=== PATIENT | male | born 1985 | race Caucasian/White ===

== ENCOUNTER 2018-06-13 20:30 | Emergency (ER) | payer OTHER ==
[2018-06-13 20:39] VITALS: BP 136/56
--- NOTE | 2018-06-13 20:57 | ED ---
Throat Pain/Nasal Congestion - HPI Summary HPI Summary: Patient is a 33-year-old who presents emergency department for worsening dental pain 3 days. Patient currently does not have a family doctor and return to us. He notes pain to right thumb over gums increase over the last several days and noticed facial swelling yesterday. Admits to chills without fever. Denies nausea or vomiting. Has no significant past medical history. Symptoms are mild. Touching affected area makes symptoms worse. Nothing makes it better. - History of Current Complaint Chief Complaint: EDDentalPain Time Seen by Provider: 06/13/18 20:56 Hx Obtained From: Patient - Allergies/Home Medications Allergies/Adverse Reactions: Allergies Allergy/AdvReac Type Severity Reaction Status Date / Time No Known Allergies Allergy Verified 06/13/18 20:36 Home Medications: Home Medications Cholecalciferol TAB* [Vitamin D TAB*] 1 tab PO DAILY 06/13/18 [History Confirmed 06/13/18] Divalproex Sodium [Depakote ER] 1,500 mg PO DAILY 06/13/18 [History Confirmed ] Propranolol TAB* [Inderal TAB*] 160 mg PO DAILY 06/13/18 [History Confirmed ] clonazePAM [Klonopin] 2 mg PO DAILY 06/13/18 [History Confirmed 06/13/18] PMH/Surg Hx/FS Hx/Imm Hx Previously Healthy: Yes Infectious Disease History: No Infectious Disease History: Denies: Traveled Outside the [place] in Last 30 Days - Family History Known Family History: Positive: Other - Noncontributory - Social History Occupation: Employed Full-time Lives: With Family Review of Systems Positive: Chills. Negative: Fever Positive: Dental Pain Gastrointestinal: Negative Negative: Vomiting, Nausea All Other Systems Reviewed And Are Negative: Yes Physical Exam Triage Information Reviewed: Yes Vital Signs On Initial Exam: Initial Vitals Temp Pulse Resp BP Pulse Ox 97.3 F 57 16 136/56 97 06/13/18 20:34 06/13/18 20:34 06/13/18 20:34 06/13/18 20:34 06/13/18 20:34 Vital Signs Reviewed: Yes Appearance: Positive: Well-Appearing - Pt. sitting on chair in NAD. Skin: Positive: Warm, Dry Head/Face: Positive: Normal Head/Face Inspection Eyes: Positive: Normal ENT: Positive: Other - Poor dentition throughout. Posterior bottom left gums there is an area of fluctuance. Mild-moderate right sided facial edema. No trismus. No pain or swelling under the tongue. No submandibular edema. Neck: Positive: Supple, Nontender, No Lymphadenopathy Neurological: Positive: Normal, CN Intact II-III Psychiatric: Positive: Affect/Mood Appropriate Procedures - Procedure Summary Procedure Summary: Hurricaine spray was used to anesthetize right steering thumb. Is able to express a small amount of purulent drainage with light pressure to posterior gum. No incision and puncture was made. Patient tolerated well. Diagnostics - Vital Signs Vital Signs Temp Pulse Resp BP Pulse Ox 06/13/18 20:34 97.3 F 57 16 136/56 97 - Laboratory Lab Statement: Any lab studies that have been ordered have been reviewed, and results considered in the medical decision making process. EENT Course/Dx - Course Course Of Treatment: Patient presenting with dental abscess. He is afebrile well-appearing. No evidence of ludwigs angina. Was able to express purulent matter from gums. Will place on clindamycin. Strongly advised patient to follow up with a dentist as soon as possible. Also to f.u with the [facility] for follow-up appointment. To apply warm compresses. Motrin as directed. To return to the ER for increased pain, swelling, fever, difficulty opening mouth. Patient understands and agrees with plan. - Differential Diagnoses Differential Diagnoses: Dental Abscess, Dental Caries, Periodontic Abscess, Periodontic Disease - Diagnoses Provider Diagnoses: Dental abscess Discharge - Sign-Out/Discharge Documenting (check all that apply): Patient Departure - Discharge Plan Condition: Good Disposition: HOME Prescriptions: Clindamycin HCl 300 mg PO Q6H #40 capsule Patient Education Materials: Dental Abscess (ED) Referrals: [facility] [Outside] No Primary Care Phys,NOPCP [Primary Care Provider] - Additional Instructions: Schedule an appointment with a dentist TIESHA Take antibiotic as directed Motrin 600-800mg every 8 hours Apply warm compresses Return to ER for increased pain, swelling, trouble opening mouth, fever, vomiting, or if concerned - Billing Disposition and Condition Condition: GOOD Disposition: Home
[2018-06-13] MEDS ORDERED: Benzocaine/Butamben/Tetracain* SPRAY TOPICAL ONE (21:23)
[2018-06-13] MEDS ORDERED: Clindamycin CAP* 150 MG PO ONE (21:56)
== END 2018-06-13 22:22 | disposition home or self-care (01) ==
LOC: ED 20:30
DX: K04.7 Periapical abscess without sinus (principal)
CPT/HCPCS: 99281; A9270-GY

== ENCOUNTER 2019-10-28 15:39 | Emergency (ER) | payer OTHER ==
[2019-10-28 15:50] VITALS: BP 133/66
[2019-10-28] MEDS ORDERED: Lidocaine 2.5%/Prilocain 2.5%* 5 GM TUBE TOPICAL ONE (17:41)
[2019-10-28] MEDS ORDERED: Lidocaine 1% MPF ** 5 ML VIAL INJ ONE (17:41)
[2019-10-28] MEDS ORDERED: oxyCODONE/Acetamin 5/325 MG* TAB PO ONE (18:14)
--- NOTE | 2019-10-28 18:20 | ED ---
Skin Complaint - HPI Summary HPI Summary: 34-year-old male presents with right groin abscess for the past 5 days. He did poke it with a safety pin a couple days ago and only got blood. He denies any fevers or chills. He states that his dad has had this before in this location but he has never had it there. He has had boils elsewhere. He denies any history of MRSA. He is not diabetic. Area has not been draining. - History of Current Complaint Chief Complaint: EDRashSkinAbscess Time Seen by Provider: 10/28/19 17:28 Stated Complaint: SCROTUM ISSUE PER PT Pain Intensity: 10 - Allergy/Home Medications Allergies/Adverse Reactions: Allergies Allergy/AdvReac Type Severity Reaction Status Date / Time No Known Allergies Allergy Verified 10/28/19 15:50 Home Medications: Home Medications Cholecalciferol TAB* [Vitamin D TAB*] 1,000 unit PO DAILY 10/28/19 [History Confirmed 10/28/19] Divalproex ER TAB(*) [Depakote ER TAB(*)] 1,000 mg PO BID 10/28/19 [History Confirmed 10/28/19] clonazePAM TAB(*) [KlonoPIN TAB(*)] 1 mg PO BID PRN 10/28/19 [History Confirmed 10/28/19] PMH/Surg Hx/FS Hx/Imm Hx Endocrine/Hematology History: Denies: Hx Anticoagulant Therapy Respiratory History: Denies: Hx Asthma Infectious Disease History: No Infectious Disease History: Denies: Traveled Outside the [place] in Last 30 Days - Family History Known Family History: Positive: Other - Noncontributory - Social History Alcohol Use: Rare Substance Use Type: Reports: Marijuana Smoking Status (MU): Light Every Day Tobacco Smoker Review of Systems Negative: Fever Negative: Chest Pain Negative: Shortness Of Breath Positive: Other - right groin abscess All Other Systems Reviewed And Are Negative: Yes Physical Exam Triage Information Reviewed: Yes Vital Signs On Initial Exam: Initial Vitals Temp Pulse Resp BP Pulse Ox 97.4 F 52 16 133/66 99 10/28/19 15:47 10/28/19 15:47 10/28/19 15:47 10/28/19 15:47 10/28/19 15:47 Vital Signs Reviewed: Yes Appearance: Positive: Well-Appearing Skin: Positive: Warm, Dry, Other - 4cm by cm area of flutuance and erythema on right scrotum Eyes: Positive: Normal, Conjunctiva Clear ENT: Positive: Pharynx normal Respiratory/Lung Sounds: Positive: Clear to Auscultation, Breath Sounds Present Cardiovascular: Positive: Normal, RRR Musculoskeletal: Positive: Normal Neurological: Positive: Normal Psychiatric: Positive: Normal Procedures - Sedation Patient Received Moderate/Deep Sedation with Procedure: No - Incision and Drainage scrotal Site: right scrotal Anesthesia: Local Instrument(s): Scalpel Packing: Gauze Diagnostics - Vital Signs Vital Signs Temp Pulse Resp BP Pulse Ox 10/28/19 15:47 97.4 F 52 16 133/66 99 - Laboratory Lab Statement: Any lab studies that have been ordered have been reviewed, and results considered in the medical decision making process. Course/Dx - Course Course Of Treatment: 34-year-old male presents with right groin abscess for the past 5 days. He did poke it with a safety pin a couple days ago and only got blood. He denies any fevers or chills. He states that his dad has had this before in this location but he has never had it there. He has had boils elsewhere. He denies any history of MRSA. He is not diabetic. Area has not been draining. On exam has a large 5 cm by 4cm abscess to right scrotal area. I&D in the area and got copious amount of drainage. Place packing. will place on clindamycin. Told to follow-up in 2 days for packing check. Patient understands and agrees with plan. - Differential Diagnoses - Skin Complaint Differential Diagnoses: Abscess, Cellulitis, Contact Dermatitis - Diagnoses Provider Diagnoses: Scrotal abscess Discharge ED - Sign-Out/Discharge Documenting (check all that apply): Patient Departure - Discharge Plan Condition: Good Disposition: HOME Prescriptions: Clindamycin Cap(NF) [Clindamycin Cap 300 mg Cap(NF)] 300 mg PO TID #29 cap Patient Education Materials: Abscess (ED) Referrals: No Primary Care Phys,NOPCP [Primary Care Provider] - Additional Instructions: Take antibiotic three a day for 10 days, first dose given in ED Apply warm compresses to area Take ibuprofen or Tylenol for pain every 6 hours Follow up with urgent care, primary or ED within 2 days for wound check Return to ED if develop any new or worsening symptoms - Billing Disposition and Condition Condition: GOOD Disposition: Home
[2019-10-28] MEDS ORDERED: Ketorolac INJ* 30 MG/ML 1 ML VIAL IM ONE (18:29)
[2019-10-28] MEDS ORDERED: Clindamycin CAP* 150 MG PO ONE (19:10)
== END 2019-10-28 20:07 | disposition home or self-care (01) ==
LOC: ED 15:39
DX: N49.2 Inflammatory disorders of scrotum (principal); L02.214 Cutaneous abscess of groin; F17.210 Nicotine dependence, cigarettes, uncomplicated; Z79.899 Other long term (current) drug therapy
CPT/HCPCS: 10060; 87070; 87076; 87205; 87640; 87641; 99283; A9270-GY; J1885